=== PATIENT | male | born 1995 | race Caucasian/White ===

== ENCOUNTER 2018-10-29 21:23 | Emergency (ER) | payer MEDICAID, OTHER ==
[~2018-10-29] VITALS: Ht 180.3 cm; Wt 112.8 kg
--- NOTE | 2018-10-29 22:04 | NUR ---
PATIENT C/O "PELVIC PAIN" THAT HE DESCRIBES SUPRAPUBIC BURNING FOR 3 OR 4 MONTHS, FINALLY CAME TO ER, "GOT THE COURAGE UP" DESCRIBES INTERMITTENT PAIN WITH URINATION, NO INCREASE IN PAIN WITH PALPATION OF ABDOMEN LAST INTERCOURSE WAS 5 MONTHS AGO, NO CONDOM USED
[2018-10-29 22:05] LABS: CLARITY,URINE CLEAR (Clear); COLOR,URINE YELLOW (Yellow); GLUCOSE, URINE NEGATIVE (Neg); KETONES,URINE NEGATIVE (Neg); LEUKOCYTE ESTERASE ,URINE NEGATIVE (Neg); NITRITES, URINE NEGATIVE (Neg); OCCULT BLOOD,URINE TRACE-LYSED (Neg); PROTEIN,URINE NEGATIVE (Neg)
[2018-10-29 22:12] LABS: BACTERIA,URINE NONE SEEN /HPF (Neg); RBC,URINE NONE SEEN /HPF (0-2); UA COLLECTION TYPE VOIDED; WBC,URINE NONE SEEN /HPF (0-4)
[2018-10-29 22:13] LABS: SQUAMOUS EPITHELIAL CELL,UR NONE SEEN /LPF (FEW)
--- NOTE | 2018-10-29 23:04 | NUR ---
PATIENT CHANGED INTO GOWN
[2018-10-29 23:08] VITALS: BP 150/84
[2018-10-29] MEDS ORDERED: azithromycin 250mg tablet PO ONE (23:30)
[2018-10-30 00:01] LABS: CLARITY,URINE CLEAR (Clear); COLOR,URINE YELLOW (Yellow); GLUCOSE, URINE NEGATIVE (Neg); KETONES,URINE NEGATIVE (Neg); LEUKOCYTE ESTERASE ,URINE NEGATIVE (Neg); NITRITES, URINE NEGATIVE (Neg); OCCULT BLOOD,URINE SMALL (Neg); PROTEIN,URINE NEGATIVE (Neg); UROBILINOGEN,URINE 0.2 E.U/dL (0.2-1.0)
[2018-10-30 00:09] LABS: UA COLLECTION TYPE VOIDED
[2018-10-30 00:10] LABS: BACTERIA,URINE FEW /HPF (Neg); MUCUS STRANDS MANY /LPF (Neg); SQUAMOUS EPITHELIAL CELL,UR FEW /LPF (FEW); WBC,URINE NONE SEEN /HPF (0-4)
== END 2018-10-29 23:45 | disposition home or self-care (01) ==
LOC: ER 21:24
DX: N34.2 Other urethritis (principal); F12.90 Cannabis use, unspecified, uncomplicated
CPT/HCPCS: 36415; 81001; 81003; 87491; 99283

== ENCOUNTER 2019-11-16 14:48 | Emergency (ER) | payer MEDICAID, OTHER ==
[~2019-11-16] VITALS: Ht 182.9 cm; Wt 129.0 kg
[2019-11-16] MEDS ORDERED: cephalexin 250mg capsule PO ONE (15:50)
[2019-11-16] MEDS ORDERED: bacitracin 15gm ointment TP ONE ×2 (15:50→17:35)
--- NOTE | 2019-11-16 16:06 | NUR ---
Pt arrived from ER triage. Left finger redness and swelling noted, possible from hang nail, per pt. Multiple self inflicted cuts on pts left anterior thigh and right lateral upper arm, healing in various stages. MD has seen pt and cuts noted. UA and labs pending. Pt changed into green scrubs, belongings recorded and placed in locker. Pt calm, cooperative, and polite. Pt oriented to unit.
[2019-11-16 16:47] LABS: BASOPHILS # (AUTO) 0.1 X10'3 (0-0.2); BASOPHILS % (AUTO) 0.9 % (0-1); EOSINOPHILS # (AUTO) 0.3 X10'3 (0-0.9); EOSINOPHILS % (AUTO) 2.3 % (0-6); HEMATOCRIT 41.5 % (42.0-52.0); HEMOGLOBIN 14.1 g/dl (14.0-17.9); LYMPHOCYTES # (AUTO) 2.4 X10'3 (1.1-4.8); LYMPHOCYTES % (AUTO) 21.1 % (21-51); MEAN CORPUSCULAR HEMOGLOBIN 30.2 PG (27.0-31.0); MEAN CORPUSCULAR VOLUME 88.7 FL (78-98); MEAN PLATELET VOLUME 6.5 FL (7.4-10.4); MONOCYTES # (AUTO) 1.2 X10'3 (0-0.9); MONOCYTES % (AUTO) 10.1 % (2-12); NEUTROPHILS # (AUTO) 7.5 X10'3 (1.8-7.7); NEUTROPHILS % (AUTO) 65.6 % (42-75); PLATELET COUNT 444 X10'3 (140-440); RED BLOOD COUNT 4.68 X10'6 (4.70-6.10); RED CELL DISTRIBUTION WIDTH 13.3 % (11.5-14.5); WHITE BLOOD COUNT 11.4 X10'3 (4.5-11.0)
--- NOTE | 2019-11-16 16:52 | NUR ---
Pt reports he does not currently take any prescription drugs. He occationally takes OTC Ibupriofen PRN for occational aches and pains.
[2019-11-16 17:05] LABS: URINE AMPHETAMINE SCREEN NEGATIVE (Neg); URINE BARBITUATE SCREEN NEGATIVE (Neg); URINE BENZODIAZEPINES SCREEN NEGATIVE (Neg); URINE CANNABINOID SCREEN NEGATIVE (Neg); URINE COCAINE SCREEN NEGATIVE (Neg); URINE METHADONE SCREEN NEGATIVE (Neg); URINE OPIATE SCREEN NEGATIVE (Neg); URINE PHENCYCLIDINE SCREEN NEGATIVE (Neg)
[2019-11-16 17:08] LABS: ALANINE AMINOTRANSFERASE 152 U/L (12-78); ALBUMIN 3.8 G/DL (3.4-5.0); ALKALINE PHOSPHATASE 126 IU/L (46-116); ANION GAP 6 (8-16); ASPARTATE AMINO TRANSFERASE 43 U/L (10-37); BILIRUBIN,TOTAL 0.4 MG/DL (0.1-1.0); BLOOD UREA NITROGEN 9 MG/DL (7-18); BUN/CREATININE RATIO 10.6 (5.4-32.0); CALCIUM 9.1 MG/DL (8.5-10.1); CHLORIDE 106 MMOL/L (99-107); CREATININE 0.85 MG/DL (0.60-1.10); ETHANOL < 0.010 GM/DL (0.0-0.010); GLUCOSE 92 MG/DL (70-104); POTASSIUM 3.9 MMOL/L (3.5-5.1); SODIUM 140 MMOL/L (135-145); TOTAL CARBON DIOXIDE 28.1 MMOL/L (24-32); TOTAL PROTEIN 7.7 G/DL (6.4-8.2); eGFR > 90 ML/MIN
--- NOTE | 2019-11-16 18:08 | NUR ---
right arm and leg lacerations cleansed with NS, bacitracin applied, and 4x4 with tape applied to protect site.
--- NOTE | 2019-11-16 18:52 | NUR ---
Pt ate all of tray accept dessert. PT has a flat affect, makes fair eye contact, and is cooperative with 1:1 assessment. He states he was feeling suicidal earlier today. Pt reports he has had multiple suicide attepmts the last one being when he was 16. Costume Designer asks if it is feeling depressed and he responds, "I am always depressed, it's just how I am." PT reports that he cuts because it is a stress reliever for him and it makes him feel better in the moment.
[2019-11-16 19:18] LABS: CLARITY,URINE CLEAR (Clear); COLOR,URINE YELLOW (Yellow); GLUCOSE, URINE NEGATIVE (Neg); KETONES,URINE NEGATIVE (Neg); LEUKOCYTE ESTERASE ,URINE NEGATIVE (Neg); NITRITES, URINE NEGATIVE (Neg); OCCULT BLOOD,URINE TRACE-INTACT (Neg); PROTEIN,URINE NEGATIVE (Neg); UROBILINOGEN,URINE 0.2 E.U/dL (0.2-1.0)
[2019-11-16 19:23] LABS: UA COLLECTION TYPE VOIDED
[2019-11-16 19:24] LABS: BACTERIA,URINE NONE SEEN /HPF (Neg); RBC,URINE 0-2 /HPF (0-2); SQUAMOUS EPITHELIAL CELL,UR FEW /LPF (FEW); WBC,URINE NONE SEEN /HPF (0-4)
--- NOTE | 2019-11-16 20:00 | NUR ---
PT IS BEING SEEN BY [facility].
--- NOTE | 2019-11-16 22:00 | NUR ---
PT ASSESSED BY [facility], PT IS BEING DISCHARGED TO HOME. [facility] STATES THEY WILL CALL PATIENT ON MONDAY TO SET UP CARE. PT VERBALIZED UNDERSTANDING AND AGREED. PT GIVEN PAPERWORK FROM [facility] REGARDING FOLLOW UP.
--- NOTE | 2019-11-16 22:30 | NUR ---
PT DISCHARGED TO HOME WITH ALL BELONGINGS. PT'S FAMILY CAME TO PICK HIM UP.
[2019-11-17 00:09] VITALS: BP 154/95
== END 2019-11-16 22:30 | disposition home or self-care (01) ==
LOC: ER 14:49
DX: F32.9 Major depressive disorder, single episode, unspecified (principal); R45.851 Suicidal ideations; F12.90 Cannabis use, unspecified, uncomplicated; Z56.0 Unemployment, unspecified
CPT/HCPCS: 36415; 80053; 80305; 80320; 81001; 84443; 85025; 99284

== ENCOUNTER 2019-12-07 14:06 | Emergency (ER) | payer MEDICAID, OTHER ==
[~2019-12-07] VITALS: Ht 180.3 cm; Wt 128.5 kg
[2019-12-07 15:18] LABS: BASOPHILS # (AUTO) 0.1 X10'3 (0-0.2); BASOPHILS % (AUTO) 0.9 % (0-1); EOSINOPHILS # (AUTO) 0.2 X10'3 (0-0.9); EOSINOPHILS % (AUTO) 1.6 % (0-6); HEMATOCRIT 42.9 % (42.0-52.0); HEMOGLOBIN 14.9 g/dl (14.0-17.9); LYMPHOCYTES # (AUTO) 2.7 X10'3 (1.1-4.8); LYMPHOCYTES % (AUTO) 19.6 % (21-51); MEAN CORPUSCULAR HEMOGLOBIN 30.9 PG (27.0-31.0); MEAN CORPUSCULAR HGB CONC 34.8 g/dL (33.0-36.5); MEAN CORPUSCULAR VOLUME 88.9 FL (78-98); MEAN PLATELET VOLUME 6.6 FL (7.4-10.4); MONOCYTES # (AUTO) 1.2 X10'3 (0-0.9); MONOCYTES % (AUTO) 8.8 % (2-12); NEUTROPHILS # (AUTO) 9.5 X10'3 (1.8-7.7); NEUTROPHILS % (AUTO) 69.1 % (42-75); PLATELET COUNT 504 X10'3 (140-440); RED BLOOD COUNT 4.83 X10'6 (4.70-6.10); RED CELL DISTRIBUTION WIDTH 13.1 % (11.5-14.5); WHITE BLOOD COUNT 13.7 X10'3 (4.5-11.0)
[2019-12-07 15:28] LABS: ALANINE AMINOTRANSFERASE 63 U/L (12-78); ALBUMIN 3.9 G/DL (3.4-5.0); ALBUMIN/GLOBULIN RATIO 0.8 (1.1-1.5); ALKALINE PHOSPHATASE 144 IU/L (46-116); ANION GAP 8 (8-16); ASPARTATE AMINO TRANSFERASE 41 U/L (10-37); BILIRUBIN,TOTAL 0.4 MG/DL (0.1-1.0); BLOOD UREA NITROGEN 10 MG/DL (7-18); BUN/CREATININE RATIO 11.8 (5.4-32.0); CALCIUM 9.2 MG/DL (8.5-10.1); CHLORIDE 104 MMOL/L (99-107); CREATININE 0.85 MG/DL (0.60-1.10); ETHANOL < 0.010 GM/DL (0.0-0.010); GLUCOSE 96 MG/DL (70-104); POTASSIUM 4.1 MMOL/L (3.5-5.1); SODIUM 139 MMOL/L (135-145); TOTAL CARBON DIOXIDE 26.8 MMOL/L (24-32); TOTAL PROTEIN 8.9 G/DL (6.4-8.2); eGFR > 90 ML/MIN
[2019-12-07] MEDS ORDERED: TETanus/Pertussis (Acell)/Diphther VAC/PF (Tdap-Adult) 0.5ml syringe IMVAC ONE (15:45)
[2019-12-07 16:31] LABS: URINE AMPHETAMINE SCREEN NEGATIVE (Neg); URINE BARBITUATE SCREEN NEGATIVE (Neg); URINE BENZODIAZEPINES SCREEN NEGATIVE (Neg); URINE CANNABINOID SCREEN NEGATIVE (Neg); URINE COCAINE SCREEN NEGATIVE (Neg); URINE METHADONE SCREEN NEGATIVE (Neg); URINE OPIATE SCREEN NEGATIVE (Neg); URINE PHENCYCLIDINE SCREEN NEGATIVE (Neg)
[2019-12-07] MEDS: gentamicin 0.1% topical ointment 15gm TP SCH ×2 (16:31→20:00)
--- NOTE | 2019-12-07 18:42 | NUR ---
Pt is sitting up in bed eating his dinner. Pt remains pleasant and cooperative throughout conversation. Pt admits that he is feeling suicidal and wants to continue cutting himself. PT has multiple self inflicted lacerations to his right upper arm. Pictures in chart.
[2019-12-07] MEDS: acetaminophen 325mg tablet PO PRN (21:03)
--- NOTE | 2019-12-07 21:29 | NUR ---
Pt reports having a headache, 650 mg tylenol PO ordered and given.
--- NOTE | 2019-12-07 21:36 | NUR ---
PACKET FAXED TO [facility]
--- NOTE | 2019-12-08 | NUR ---
Pt is sleepig on R side, no signs or symptoms of distress at this time.
--- NOTE | 2019-12-08 03:28 | NUR ---
PT sleeping on back, RR 16, even and unlabored.
--- NOTE | 2019-12-08 04:59 | NUR ---
PT wakes up and uses the restroom. He appears to be in pain, but refuses tylenol. Pt states he slept well and is glad he got that much sleep.
--- NOTE | 2019-12-08 06:30 | NUR ---
pt is currently sleeping.
--- NOTE | 2019-12-08 07:30 | NUR ---
pt is resting in his bed
[2019-12-08] MEDS: gentamicin 0.1% topical ointment 15gm TP SCH ×2 (08:00→20:00)
--- NOTE | 2019-12-08 08:30 | NUR ---
pt is awake and eating breakfast
--- NOTE | 2019-12-08 09:30 | NUR ---
dressing placed on wounds. pt changed into clean green scrubs
--- NOTE | 2019-12-08 09:40 | NUR ---
PT STATES HE "WASN'T HUNGRY" AND DID NOT EAT HIS BREAKFAST.
--- NOTE | 2019-12-08 10:36 | NUR ---
dressing placed on wounds to left leg and right arm. xero gauze, gauge roll and coban. wound care consult placed
--- NOTE | 2019-12-08 11:47 | NUR ---
Assumed care of pt while primary nurse on break. Pt resting in bed. Sitter nearby. Will continue to monitor.
--- NOTE | 2019-12-08 12:20 | NUR ---
pt is sleeping
--- NOTE | 2019-12-08 13:30 | NUR ---
pt is awake. sitting on his bed and eating lunch
--- NOTE | 2019-12-08 14:30 | NUR ---
pt is resting in his bed. no issues at this time
--- NOTE | 2019-12-08 15:30 | NUR ---
pt is sleeping no issues at this time
[2019-12-08] MEDS: acetaminophen 325mg tablet PO PRN ×2 (17:52→23:54)
--- NOTE | 2019-12-08 19:39 | NUR ---
Pt. sleeping, easily arousable. Gen assessment done at this time. Pt. denies S/I at the moment.
--- NOTE | 2019-12-08 20:30 | NUR ---
dressings to wounds to rt shoulder and left thigh removed, cleaned wounds with NS, redressed with xeroform and guaze wrap, pt has order for wound care tomorrow, pt vicenta well
--- NOTE | 2019-12-08 22:22 | NUR ---
pt is sleeping, resp even and unlabored
--- NOTE | 2019-12-08 23:44 | NUR ---
pt is asking for medication to help him sleep, Dr Agrawal gave verbal order for ativan 1mg PO x1 now
[2019-12-08] MEDS ORDERED: LORazepam 1 MG tablet PO ONE (23:45)
--- NOTE | 2019-12-09 00:30 | NUR ---
Assumed care from KRISTIAN Huerta. Pt. currently in bed, sleeping on sup position.
--- NOTE | 2019-12-09 01:26 | NUR ---
Pt continues to sleep on supine position.
--- NOTE | 2019-12-09 02:33 | NUR ---
Pt. continues to sleep. He repos self.
--- NOTE | 2019-12-09 03:33 | NUR ---
Pt. continues to sleep on L side at this time.
--- NOTE | 2019-12-09 04:25 | NUR ---
Pt. continues to sleep at this time.
[2019-12-09 05:06] VITALS: BP 124/71
--- NOTE | 2019-12-09 05:27 | NUR ---
Pt. sleeping on R side.
--- NOTE | 2019-12-09 07:00 | NUR ---
Pt received alseep in bed without complaints or distress.
[2019-12-09] MEDS: gentamicin 0.1% topical ointment 15gm TP SCH (08:00)
--- NOTE | 2019-12-09 09:00 | NUR ---
Pt awoke for breakfast and then wound care nurse was here and performed drsg change which was tolerated well.
--- NOTE | 2019-12-09 09:41 | NUR ---
Wound care POC. Arrived at bedside for assessment of wounds to right upper arm and left thigh. Explained procedure to pt and pt gave informed verbal consent. Pt is a 24 year old male. He presented to the ED for evaluation of suicidal ideation. He has a hx of depression that is currently untreated. He states no other health history. He states he has used cocaine in the past but denies any current drug or tobacco use. His WBC is 13.7 thousand. All other labs are unremarkable. Pt states that he cut himself with a razor about a month ago. He states that as they would scab they would get caught on his clothing and rip the scabs off. The wounds to the right upper arm present with no signs of infection noted. All the wounds appear to be within the same phase of healing. There are multiple lacerations noted, some in the shape of an X and some diagonal lines. Several of them appear to be hypergranulating which would indicate that the pt has been removing scabs/eschar as it forms as they should not still be full thickness wounds. Wound beds with beefy red granulation tissue, minimal amount of serosanguineous drainage noted, no odor, erythema or induration. Cleansed with wound cleanser, rinsed with saline, applied xeroform to open areas, covered with dry gauze and secured with gauze roll. Multiple wounds to the left anterior thigh also in the shape of an X as well as diagonal lines. Wound beds are beefy red, also nearing hypergranulation as described above. The wounds to the more medial aspect present with more tenderness per the pt, grimacing noted when cleaning the wounds. Erythema and purulent drainage noted to several of the wounds on the thigh. There are also scars from previous cuts on the thigh which the pt states were not obtained at the same time as the open wounds. All wounds are full thickness. Cleansed with wound cleanser, rinsed with saline, applied therahoney to wound beds, covered with silver alginate and ABDs, secured with gauze roll. Recommend obtaining a culture of the wounds to the thigh if pt is admitted and a course of abx is likely needed. Pt is likely being admitted to the [facility] unit today and will be reevaluated tomorrow as an inpatient for further dressing orders and culture if indicated. Pt tolerated procedure well. Bed left in lowest position, call light and personal items within reach.
[2019-12-09] MEDS: acetaminophen 325mg tablet PO PRN (10:09)
--- NOTE | 2019-12-09 11:05 | NUR ---
Patient resting comfortably, no requests at this time.
--- NOTE | 2019-12-09 13:00 | NUR ---
Pt lying in bed without complaints.
[2019-12-09] MEDS ORDERED: NO HOME MEDS (15:33)
[2019-12-12] MEDS ORDERED: TRAZ-251 PO (16:01)
[2019-12-12] MEDS ORDERED: FLUO-167 PO (16:01)
[2019-12-12] MEDS ORDERED: BACDS PO (16:01)
== END 2019-12-09 14:30 ==
LOC: ER 14:07
DX: F32.9 Major depressive disorder, single episode, unspecified (principal); L08.89 Other specified local infections of the skin and subcutaneous tissue; R45.851 Suicidal ideations; Z56.0 Unemployment, unspecified
CPT/HCPCS: 36415; 80053; 80305; 80320; 84443; 85025; 90471; 90715; 99285

== ENCOUNTER 2020-02-03 10:21 | Emergency (ER) | payer MEDICAID ==
[~2020-02-03] VITALS: Ht 185.4 cm; Wt 110.0 kg
[~2020-02-03 10:21] MED LIST: FLUO-167 PO; NO HOME MEDS; PRAZ1CAP5 PO; TRAZ-251 PO
[2020-02-03 10:44] LABS: BASOPHILS % (AUTO) 0.6 % (0-1); EOSINOPHILS # (AUTO) 0.4 X10'3 (0-0.9); EOSINOPHILS % (AUTO) 4.5 % (0-6); HEMATOCRIT 45.7 % (42.0-52.0); HEMOGLOBIN 15.1 g/dl (14.0-17.9); LYMPHOCYTES # (AUTO) 2.6 X10'3 (1.1-4.8); LYMPHOCYTES % (AUTO) 33.2 % (21-51); MEAN CORPUSCULAR HEMOGLOBIN 29.9 PG (27.0-31.0); MEAN CORPUSCULAR HGB CONC 33.1 g/dL (33.0-36.5); MEAN CORPUSCULAR VOLUME 90.6 FL (78-98); MEAN PLATELET VOLUME 6.8 FL (7.4-10.4); MONOCYTES # (AUTO) 0.9 X10'3 (0-0.9); MONOCYTES % (AUTO) 10.9 % (2-12); NEUTROPHILS % (AUTO) 50.8 % (42-75); PLATELET COUNT 382 X10'3 (140-440); RED BLOOD COUNT 5.05 X10'6 (4.70-6.10); RED CELL DISTRIBUTION WIDTH 13.9 % (11.5-14.5); WHITE BLOOD COUNT 7.9 X10'3 (4.5-11.0)
[2020-02-03 10:46] LABS: CLARITY,URINE CLEAR (Clear); COLOR,URINE YELLOW (Yellow); GLUCOSE, URINE NEGATIVE (Neg); KETONES,URINE NEGATIVE (Neg); LEUKOCYTE ESTERASE ,URINE NEGATIVE (Neg); NITRITES, URINE NEGATIVE (Neg); OCCULT BLOOD,URINE SMALL (Neg); PH,URINE 5.5 (4.8-8.0); PROTEIN,URINE NEGATIVE (Neg); UA COLLECTION TYPE URINAL; UROBILINOGEN,URINE 0.2 E.U/dL (0.2-1.0)
[2020-02-03] MEDS ORDERED: TRAZ-251 PO (10:48)
[2020-02-03] MEDS ORDERED: FLUO20CA39 PO (10:48)
[2020-02-03] MEDS ORDERED: PRAZ1CAP5 PO (10:48)
[2020-02-03 10:52] LABS: MUCUS STRANDS MANY /LPF (Neg); SQUAMOUS EPITHELIAL CELL,UR FEW /LPF (FEW); URINE AMPHETAMINE SCREEN NEGATIVE (Neg); URINE BARBITUATE SCREEN NEGATIVE (Neg); URINE BENZODIAZEPINES SCREEN NEGATIVE (Neg); URINE CANNABINOID SCREEN NEGATIVE (Neg); URINE COCAINE SCREEN NEGATIVE (Neg); URINE METHADONE SCREEN NEGATIVE (Neg); URINE OPIATE SCREEN NEGATIVE (Neg); URINE PHENCYCLIDINE SCREEN NEGATIVE (Neg)
[2020-02-03 10:53] LABS: BACTERIA,URINE NONE SEEN /HPF (Neg); RBC,URINE 0-2 /HPF (0-2); WBC,URINE NONE SEEN /HPF (0-4)
[2020-02-03 10:58] LABS: ALANINE AMINOTRANSFERASE 65 U/L (12-78); ALBUMIN 3.9 G/DL (3.4-5.0); ALKALINE PHOSPHATASE 122 IU/L (46-116); ANION GAP 8 (8-16); ASPARTATE AMINO TRANSFERASE 33 U/L (10-37); BILIRUBIN,TOTAL 0.4 MG/DL (0.1-1.0); BLOOD UREA NITROGEN 12 MG/DL (7-18); BUN/CREATININE RATIO 13.2 (5.4-32.0); CALCIUM 8.9 MG/DL (8.5-10.1); CHLORIDE 105 MMOL/L (99-107); CREATININE 0.91 MG/DL (0.60-1.10); GLUCOSE 102 MG/DL (70-104); POTASSIUM 3.7 MMOL/L (3.5-5.1); SODIUM 141 MMOL/L (135-145); TOTAL CARBON DIOXIDE 27.6 MMOL/L (24-32); TOTAL PROTEIN 7.9 G/DL (6.4-8.2); eGFR > 90 ML/MIN
[2020-02-03 11:07] LABS: ETHANOL < 0.010 GM/DL (0.0-0.010)
--- NOTE | 2020-02-03 11:34 | NUR ---
PATIENT AMBULATORY TO ER #[id number]. PATIENT COOPERATIVE AND DENIES NEEDS AT THIS TIME.
--- NOTE | 2020-02-03 14:22 | NUR ---
Pt. resting quietly in bed, no signs of distress, respiration WNL. Talked to pt. while taking vital signs, pt. is calm and understands timeline for [facility] to evaluate him. Pt. states "I've been feeling really down and depressed, I want to be here incase I start feeling like I am going to harm myself". Pt. has wounds on upper right arm that he reports are from previous self harm.
--- NOTE | 2020-02-03 18:51 | NUR ---
pt is lying in bed staring at ceiling. pt appears depressed with flat affect. pt stated that wants to speak [facility].
--- NOTE | 2020-02-03 19:17 | NUR ---
pt is meeting with clinician from [facility] now.
--- NOTE | 2020-02-03 20:25 | NUR ---
pt has been released from 5150, is awaiting referral to [facility]. pt was given his belongings.
[2020-02-03] MEDS ORDERED: traZODone 50mg tablet PO SCH (21:00)
[2020-02-03] MEDS ORDERED: prazosin 1mg capsule PO SCH (21:00)
[2020-02-03 21:16] VITALS: BP 145/73
[2020-02-04] MEDS ORDERED: FLUoxetine 20mg capsule PO SCH (08:00)
== END 2020-02-03 21:19 | disposition home or self-care (01) ==
LOC: ER 10:21
DX: R45.851 Suicidal ideations (principal); F32.9 Major depressive disorder, single episode, unspecified; Z72.89 Other problems related to lifestyle; Z56.0 Unemployment, unspecified; Z79.899 Other long term (current) drug therapy
CPT/HCPCS: 36415; 80053; 80305; 80320; 81001; 84443; 85025; 99285

== ENCOUNTER 2020-03-10 21:33 | Emergency (ER) | payer MEDICAID ==
[~2020-03-10] VITALS: Ht 182.9 cm; Wt 120.5 kg
[~2020-03-10 21:33] MED LIST changes: -FLUO-167 PO; +FLUO20CA39 PO; -NO HOME MEDS
--- NOTE | 2020-03-10 22:05 | NUR ---
PT TAKEN TO ROOM 17 TO BE CHANGED INTO [facility] HAVE LABS DRAWN AND A BELONGING INVENTORY LIST TO BE COMPLETD BY CELL[employer] PLASTICS CUTTER
[2020-03-10 22:25] LABS: BASOPHILS # (AUTO) 0.1 X10'3 (0-0.2); BASOPHILS % (AUTO) 0.8 % (0-1); EOSINOPHILS % (AUTO) 0.3 % (0-6); HEMOGLOBIN 14.6 g/dl (14.0-17.9); LYMPHOCYTES % (AUTO) 20.5 % (21-51); MEAN CORPUSCULAR HEMOGLOBIN 30.4 PG (27.0-31.0); MEAN CORPUSCULAR HGB CONC 33.9 g/dL (33.0-36.5); MEAN CORPUSCULAR VOLUME 89.6 FL (78-98); MEAN PLATELET VOLUME 6.8 FL (7.4-10.4); MONOCYTES # (AUTO) 1.8 X10'3 (0-0.9); MONOCYTES % (AUTO) 12.2 % (2-12); NEUTROPHILS # (AUTO) 9.7 X10'3 (1.8-7.7); NEUTROPHILS % (AUTO) 66.2 % (42-75); PLATELET COUNT 351 X10'3 (140-440); RED CELL DISTRIBUTION WIDTH 13.9 % (11.5-14.5); WHITE BLOOD COUNT 14.6 X10'3 (4.5-11.0)
[2020-03-10 22:37] LABS: ALANINE AMINOTRANSFERASE 67 U/L (12-78); ALBUMIN 4.1 G/DL (3.4-5.0); ALBUMIN/GLOBULIN RATIO 1.1 (1.1-1.5); ALKALINE PHOSPHATASE 100 IU/L (46-116); ANION GAP 11 (8-16); ASPARTATE AMINO TRANSFERASE 30 U/L (10-37); BILIRUBIN,TOTAL 0.5 MG/DL (0.1-1.0); BLOOD UREA NITROGEN 17 MG/DL (7-18); BUN/CREATININE RATIO 15.5 (5.4-32.0); CALCIUM 8.7 MG/DL (8.5-10.1); CHLORIDE 102 MMOL/L (99-107); ETHANOL < 0.010 GM/DL (0.0-0.010); GLUCOSE 106 MG/DL (70-104); POTASSIUM 3.4 MMOL/L (3.5-5.1); SODIUM 139 MMOL/L (135-145); TOTAL CARBON DIOXIDE 25.9 MMOL/L (24-32); TOTAL PROTEIN 7.9 G/DL (6.4-8.2); eGFR 82 ML/MIN
--- NOTE | 2020-03-10 22:37 | NUR ---
The patient is a 24 year old male who self presented to [facility] ER with complaints of self inflicted cuts to various places on his body. He stated that he is not suicidal but uses the cutting behaviors as a coping skill to decrease his anxiety. He stated he was released from the [facility] prison around 3pm today after being arrested for being drunk in public. He is homeless and unemployed. He has recently been staying with his brother but was kicked out because he had a fight with him. He recently was discharged from the [facility] where he was there for the past 30 days. He denies psychotic symptoms and none were evident during the assessment. He is currently being treated in the community for psych and is on prozac and trazodone. He was cooperative with the unit routine.
[2020-03-10 22:44] LABS: CLARITY,URINE SLIGHTLY CLOUDY (Clear); COLOR,URINE YELLOW (Yellow); GLUCOSE, URINE NEGATIVE (Neg); KETONES,URINE NEGATIVE (Neg); LEUKOCYTE ESTERASE ,URINE NEGATIVE (Neg); NITRITES, URINE NEGATIVE (Neg); OCCULT BLOOD,URINE SMALL (Neg); PROTEIN,URINE TRACE mg/dl (Neg); UROBILINOGEN,URINE 0.2 E.U/dL (0.2-1.0)
[2020-03-10 22:50] LABS: UA COLLECTION TYPE CLN CATCH MIDSTREAM
[2020-03-10 22:51] LABS: BACTERIA,URINE NONE SEEN /HPF (Neg); RBC,URINE 0-2 /HPF (0-2); SQUAMOUS EPITHELIAL CELL,UR FEW /LPF (FEW); WBC,URINE NONE SEEN /HPF (0-4)
[2020-03-10 22:56] LABS: URINE AMPHETAMINE SCREEN NEGATIVE (Neg); URINE BARBITUATE SCREEN NEGATIVE (Neg); URINE BENZODIAZEPINES SCREEN NEGATIVE (Neg); URINE CANNABINOID SCREEN NEGATIVE (Neg); URINE COCAINE SCREEN NEGATIVE (Neg); URINE METHADONE SCREEN NEGATIVE (Neg); URINE OPIATE SCREEN NEGATIVE (Neg); URINE PHENCYCLIDINE SCREEN NEGATIVE (Neg)
--- NOTE | 2020-03-10 23:23 | NUR ---
The patient is resting on his bed. PO fluids encouraged.
--- NOTE | 2020-03-11 02:22 | NUR ---
PT REMAINS ASLEEP. CURRENTLY LYING ON HIS BACK WITH BLANKETS COVERING TO HIS CHEST. RR 14 AND UNLABORED. SITTER AND RN WITHIN VIEW OF PT AAT.
--- NOTE | 2020-03-11 02:34 | NUR ---
PT NOTED TO HAVE HR OF 128 IN TRIAGE. VS RECHECKED AND HR 94, ALL OTHER VSS. PT DENEIS ANY PAIN. PT WAS AWAKENED TO TAKE VS AND WAS POLITE AND APPROPRIATE WITH ME. DENIES NEED FOR ANYTHING AT THIS TIME.
--- NOTE | 2020-03-11 03:35 | NUR ---
PT SLEEPING. LYING ON HIS BACK WITH BLANKETS COVERING TO HIS CHEST. RR 14 AND UNLABORED. SITTER AND RN WITHIN VIEW OF PT AAT.
--- NOTE | 2020-03-11 04:30 | NUR ---
PT SLEEPING PEACFULLY SUPINE RESP UNLABORED EVEN . WILL CONTINUE TO MONITOR AND REASSESS.
--- NOTE | 2020-03-11 05:28 | NUR ---
PT SLEEPING PEACFULLY ON HIS RIGHT SIDE RESP UNLABORED . IN THE DIRECT MARYANN EOF SIGHT OF STAFF . WILL CONTINUE TO MONITOR AND REASSESS
--- NOTE | 2020-03-11 05:35 | NUR ---
packet faxed to [facility]
--- NOTE | 2020-03-11 05:36 | NUR ---
PT DIET ORDER FAXED TO [facility]
[2020-03-11 05:47] VITALS: BP 109/67
--- NOTE | 2020-03-11 06:30 | NUR ---
PT IS RESTING IN BED. REPORT RECEIVED
--- NOTE | 2020-03-11 07:30 | NUR ---
PT IS RESTING IN HIS ROOM. NO ISSUES AT THIS TIME
[2020-03-11] MEDS ORDERED: FLUoxetine 20mg capsule PO SCH (08:00)
--- NOTE | 2020-03-11 08:30 | NUR ---
PT IS SLEEPING
--- NOTE | 2020-03-11 09:30 | NUR ---
PT IS AWAKE AND TALKING WITH [facility]
--- NOTE | 2020-03-11 10:15 | NUR ---
PT IS GOING TO GO HOME TODAY AT 1400
--- NOTE | 2020-03-11 11:30 | NUR ---
PT RESTING IN ROOM
[2020-03-11] MEDS ORDERED: traZODone 50mg tablet PO SCH (21:00)
== END 2020-03-11 14:28 | disposition home or self-care (01) ==
LOC: ER 21:34
DX: S41.112A Laceration without foreign body of left upper arm, initial encounter (principal); R45.851 Suicidal ideations; D72.823 Leukemoid reaction; F32.9 Major depressive disorder, single episode, unspecified; Z72.89 Other problems related to lifestyle; Z56.0 Unemployment, unspecified; Z79.899 Other long term (current) drug therapy; X78.9XXA Intentional self-harm by unspecified sharp object, initial encounter; Y93.89 Activity, other specified; Y92.89 Other specified places as the place of occurrence of the external cause; Y99.8 Other external cause status
CPT/HCPCS: 36415; 80053; 80305; 80320; 81001; 85025; 99285

== ENCOUNTER 2020-04-23 09:10 | Inpatient (IN) | payer MEDICAID ==
[~2020-04-23] VITALS: Ht 185.4 cm; Wt 125.8 kg
[~2020-04-23 09:10] MED LIST changes: -PRAZ1CAP5 PO
[2020-04-23] MEDS ORDERED: acetaminophen 325mg tablet PO PRN ×2 (10:45)
[2020-04-23] MEDS ORDERED: traZODone 50mg tablet PO PRN (10:45)
[2020-04-23] MEDS ORDERED: loperamide 2mg capsule PO PRN (10:45)
[2020-04-23] MEDS ORDERED: mag hydrox/Alum hydrox/simeth 30ml oral suspension PO PRN (10:45)
[2020-04-23] MEDS ORDERED: LORazepam 1 MG tablet PO PRN (10:45)
[2020-04-23] MEDS ORDERED: magnesium hydroxide 30ml (MOM) UD suspension PO PRN (10:45)
[2020-04-23 11:03] VITALS: BP 132/74
[2020-04-23] MEDS ORDERED: ESCI-10 PO (11:22)
--- NOTE | 2020-04-23 15:45 | NUR ---
ADMIT NOTE: Patient admitted to [facility] at 1050 from [facility] for a 5150 DTS. Patient was admitted to [facility] because he had called [facility] reporting he had lacerated himself numerous times. Patient presented with multiple lacerations x4 to right leg Patient stated he had not taken his medications for several days and admitted to being suicidal. Patient stated he suddenly became suicidal and took a razor blade and cut his arms, legs, neck face and chest. 2RN skin check completed; belongings inventoried. Advisement given to patient. Patient presented as depressed upon admission. Patient denies SI/HI/AH/VH at this time. Patient states I just got to my boiling point. Patient states he self harms, but doesnt want to . Pt. Minimizes the lethality of this last attempt. Pt. Contracts for safety while on the unit.. Patient states the reason he stopped taking his medication was because he didnt feel like it helped. Patient is homeless, is estranged from his family. He states he first started cutting at the age of 13. Patient has some significant keloid scars on right upper arm and left lower leg. Pts current lacerations are to his face, neck, chest, bilateral shoulders. There are sutures to the right medial side of calf; sutures intact, no drainage. Wounds Wounds on right legt were cleaned with normal saline. Photographs in chart. A wound consult was ordered. Pt. c/o of diarrhea the last couple of weeks. Pt. Declined lunch and states every time he eats he gets gas and diarrhea. Pt. stayed up in his chair for a short time then went to bed. No medical history noted per patient.
[2020-04-23] MEDS ORDERED: venlafaxine XR 37.5mg cap (Q24H) PO ONE (19:35)
[2020-04-23 20:01] VITALS: BP 129/69
[2020-04-23] MEDS: traZODone 50mg tablet PO SCH (20:09)
[2020-04-23] MEDS ORDERED: traZODone 50mg tablet PO SCH (21:00)
--- NOTE | 2020-04-24 02:09 | NUR ---
Nursing Progress Note: Gabriele Legal hold: 5150 Client on involuntary status for GD/DTS. Report received from SAMANTHA Suazo with use of SBAR. Why are they here: Patient was admitted to [facility] because he had called [facility] reporting he had lacerated himself numerous times. Patient presented with multiple lacerations x4 to right leg Patient stated he had not taken his medications for several days and admitted to being suicidal. Patient stated he suddenly became suicidal and took a razor blade and cut his arms, legs, neck face and chest. Assessment What has happened this shift: Pt was in rec room during shift change, then went into consultation room to talk to . When asked how he was doing he states I could always be better. He denies any S/I and when asked why he cuts himself, he states for multiple reason, one of them is to hurt myself. He states that he feels safe here. Pt states that he usually always feels depressed but denies any anxiety at the moment. He is very guarded and although very pleasant, conversations are minimal. He states that having to live with multiple medical issues its very frustrating as he doesnt really have a primary care doctor. He was cooperative during 1:1 physical assessment and took all his HS meds. He spends time in recreation room watching TV but does not socialize or interact with other patients. S/I, H/I: Denies A/VH: Denies Sleep: Currently sleeping, see sleep assessment for total hours ADL's: Independent Group attendance: None during slot shift supervisor Were meds taken: Yes Any med S/E: None noted or reported Mental Status Exam Appearance: Appropriate, wearing personal clothing Eye contact: Good, direct Behavior: Pleasant, cooperative, guarded, isolative Speech: Normal rate and rhythm Mood: Depressed Affect: Congruent with mood Thought process: Linear Thought Content: Current medical issues Cognition: Alert and oriented X4 Insight: Poor Judgment: Poor Interventions PRN's used: None Therapeutic interventions: 1:1 assessment, therapeutic conversation, active listening, maintained a safe and therapeutic environment, monitored behaviors and need for intervention, encouragement to perform personal hygiene, provided medication education, administration, and monitored for effects, Q 15 min safety checks. Restraints/seclusion/emergency medication:N/A Justification of Continued Inpatient Treatment: Pt. requires interruption of current crisis; medication adjustments and monitoring for effects; and a safe and therapeutic environment to prevent readmission. and further decompensation.
[2020-04-24 07:23] LABS: CHOL/HDL RATIO 5.2 (0.00-4.99); CHOLESTEROL 156 MG/DL (0-200); HDL CHOLESTEROL 30 MG/DL (35-60); LDL CHOLESTEROL 106 MG/DL (50-100); TRIGLYCERIDES 185 MG/DL (20-135)
[2020-04-24 07:28] LABS: HEMOGLOBIN A1C 5.6 % (4.5-6.2)
[2020-04-24] MEDS ORDERED: ESCITALOPRAM OXALATE 5 MG TABLET PO SCH ×2 (08:00)
[2020-04-24] MEDS: venlafaxine XR 75mg capsule (Q24H) PO SCH (08:12)
[2020-04-24 08:35] VITALS: BP 112/57
--- NOTE | 2020-04-24 15:06 | NUR ---
Nursing Progress Note: Legal hold: 5150 Client on involuntary status for GD/DTS. Report received from SAMANTHA Aguillon with use of SBAR. Why are they here: Patient was admitted to [facility] because he had called [facility] reporting he had lacerated himself numerous times. Patient presented with multiple lacerations x4 to right leg Patient stated he had not taken his medications for several days and admitted to being suicidal. Patient stated he suddenly became suicidal and took a razor blade and cut his arms, legs, neck face and chest. Assessment What has happened this shift: Pt was cooperative with medication this morning. He did complain of some dizziness after HS meds last night. Suggested he speak with provider about possibly decreasing his Trazodone dose. Pt did not complain of any dizziness after taking morning antidepressant medication. Pt is isolative to self and room, he did not attend group, he refused breakfast but ate lunch. Pt rated his depression at an 8/10, he denied SI or urge to self harm today. Pt denied AH/HI, he denied VH today though states he sometimes sees shadows out of the corner of his eye. Pt asked if there was anyway he could go get his clothes. Pt stated he does not have anyone to bring clothing in for him. Pt then expressed concern that his clothing is a a [employer]. Educated pt that his social science analyst here could help him with this. Notified Mariana of pt's concerns, she will call [employer]. Wound consult done today. business technology architect applied Xeroform, gauze and tape over lacerations on left arm and right lower leg. She is putting orders in for daily dressing changes. S/I, H/I: Pt denies A/VH: Pt denies Sleep: Pt slept 7 hours last night, he naps throughout the day. ADL's: Independent Group attendance: No Were meds taken: Yes Any med S/E: Pt reported feeling dizzy after HS meds. Mental Status Exam Appearance: Young man with short dark hair dressed in clean green hospital scrubs with multiple self-inflicted lacerations covering his body. Eye contact: Good Behavior: Pleasant,cooperative, guarded, isolative Speech: Clear, audible, minimal, normal rate & rhythm Mood: Depressed Affect: Blunted Thought process: Linear Thought Content: Concerned about his belongings at [facility] 6. Cognition: A/O X 4 Insight: Poor Judgment: Poor Interventions PRN's used: None Therapeutic interventions: 1:1 assessment, therapeutic conversation, active listening, maintained a safe and therapeutic environment, monitored behaviors and need for intervention, encouragement to perform personal hygiene, provided medication education, administration, and monitored for effects, ensured contract for safety, encouraged pt to get up out of bed for meals and groups, wound care, Q 15 min safety checks. Restraints/seclusion/emergency medication:N/A Justification of Continued Inpatient Treatment: Pt requires interruption of current crisis; medication adjustments and monitoring for effects; and a safe and therapeutic environment to prevent readmission and further decompensation.
--- NOTE | 2020-04-24 15:26 | NUR ---
WOUND INFECTION EDUCATION PROVIDED BY WOUND CARE 1. Patient instructed to call their primary doctor, or go the ED immediately if any of the following symptoms occur: * Increased pain in wound * Increase in drainage from the wound * Redness in the skin surrounding the wound * Warmth in the skin surrounding the wound * Bleeding from the wound * Temperature of 101 or greater 2. If any of these occur while in the hospital tell a nurse immediately. Addendum: 04/24/20 at 1526 by Jaci Delgado RN Amended: Links added.
[2020-04-24 19:47] VITALS: BP 130/75
[2020-04-24] MEDS: traZODone 50mg tablet PO SCH (22:08)
--- NOTE | 2020-04-25 00:18 | NUR ---
Nursing Progress Note: Gabriele Legal hold: 5150 Client on involuntary status for GD/DTS. Report received from SAMANTHA Suazo with use of SBAR. Why are they here: Patient was admitted to [facility] because he had called [facility] reporting he had lacerated himself numerous times. Patient presented with multiple lacerations x4 to right leg Patient stated he had not taken his medications for several days and admitted to being suicidal. Patient stated he suddenly became suicidal and took a razor blade and cut his arms, legs, neck face and chest. Assessment What has happened this shift: Pt was in rec room during shift change reading the bible during shift change. States he is doing good, as good as I can be I guess. He remains guarded and although is friendly, answers questions minimally and appears somewhat annoyed He was cooperative during 1:1 physical assessment and denies any S/I, or H/I. Pt states that he sometimes sees things. not right now, but sometimes I see figures. I dont usually hear any weird stuff though. He denies any anxiety and when asked if he had slept well, he states that it might of been a little too well. He reports feeling dizzy upon getting up this morning. Pt requested to take only 50mg of Trazodone. Pt spent some more time in rec room watching TV and remained appropriate for they rest of the evening. S/I, H/I: Denies A/VH: Endorses visual hallucinations Sleep: Currently sleeping, see sleep assessment for total hours ADL's: Independent Group attendance: None during cnc machinist 2nd shift Were meds taken: Yes Any med S/E: None noted or reported Mental Status Exam Appearance: Appropriate, wearing green unit scrubs Eye contact: Good, direct Behavior: Pleasant, cooperative, guarded, socializing minimally Speech: Normal rate and rhythm Mood: "I'm doing alright" Affect: Blunted Thought process: Linear Thought Content: Reading the bible, medication side effects Cognition: Alert and oriented X4 Insight: Poor Judgment: Poor Interventions PRN's used: None Therapeutic interventions: 1:1 assessment, therapeutic conversation, active listening, maintained a safe and therapeutic environment, monitored behaviors and need for intervention, encouragement to perform personal hygiene, provided medication education, administration, and monitored for effects, Q 15 min safety checks. Restraints/seclusion/emergency medication:N/A Justification of Continued Inpatient Treatment: Pt. requires interruption of current crisis; medication adjustments and monitoring for effects; and a safe and therapeutic environment to prevent readmission. and further decompensation.
[2020-04-25] MEDS: venlafaxine XR 75mg capsule (Q24H) PO SCH (07:58)
[2020-04-25 08:59] VITALS: BP 114/71
--- NOTE | 2020-04-25 18:00 | NUR ---
Nursing Progress Note: Legal hold: 5150 Client on involuntary status for GD/DTS. Report received from SAMANTHA Aguillon with use of SBAR. Why are they here: Patient was admitted to [facility] because he had called [facility] reporting he had lacerated himself numerous times. Patient presented with multiple lacerations x4 to right leg Patient stated he had not taken his medications for several days and admitted to being suicidal. Patient stated he suddenly became suicidal and took a razor blade and cut his arms, legs, neck face and chest. Assessment What has happened this shift: Pt remains depressed, pt denies SI/HI/AH/VH. Pt did not complain of dizziness or adverse side effects from medications this morning, pt states, "but I only took 50 mg last night." Pt's Lexapro was D/c'd. Pt was out of his room more today than yesterday, watches TV in the community room, mostly isolative to self, pleasant and cooperative with staff, no unsafe behaviors noted. Dressings over lacerations left arm, right leg, and left chest remained dry and intact this shift. Went to change dressings earlier but patient was engaged in watching a movie. This RN will do dressing changes before leaving this shift once pt finishes dinner. S/I, H/I: Pt denies A/VH: Pt denies Sleep: Pt slept 6 hours last night, he naps throughout the day. ADL's: Independent Group attendance: No Were meds taken: Yes Any med S/E: None noted or reported. Mental Status Exam Appearance: Young man with short dark hair, glasses, and multiple tattoos dressed in clean [facility] scrubs with multiple self-inflicted lacerations covering his body. Eye contact: Good Behavior: Pleasant,cooperative, guarded, mostly isolative to self Speech: Clear, audible, minimal, normal rate & rhythm Mood: Depressed Affect: Blunted, though has a slightly sheepish/embarrassed grin during assessments Thought process: Linear Thought Content: He's as good as he gets. Cognition: A/O X 4 Insight: Fair Judgment: Fair Interventions PRN's used: None Therapeutic interventions: 1:1 assessment, therapeutic conversation, active listening, maintained a safe and therapeutic environment, monitored behaviors and need for intervention, encouragement to perform personal hygiene, provided medication education, administration, and monitored for effects, ensured contract for safety, encouraged pt to get up out of bed for meals and groups, wound care, Q 15 min safety checks. Restraints/seclusion/emergency medication:N/A Justification of Continued Inpatient Treatment: Pt requires interruption of current crisis; medication adjustments and monitoring for effects; and a safe and therapeutic environment to prevent readmission and further decompensation.
[2020-04-25 19:52] VITALS: BP 131/61
[2020-04-25] MEDS: traZODone 50mg tablet PO SCH (21:33)
--- NOTE | 2020-04-26 00:12 | NUR ---
Nursing Progress Note: Gabriele Legal hold: 5150 Client on involuntary status for GD/DTS. Report received from SAMANTHA Suazo with use of SBAR. Why are they here: Patient was admitted to [facility] because he had called [facility] reporting he had lacerated himself numerous times. Patient presented with multiple lacerations x4 to right leg Patient stated he had not taken his medications for several days and admitted to being suicidal. Patient stated he suddenly became suicidal and took a razor blade and cut his arms, legs, neck face and chest. Assessment What has happened this shift: Pt was in rec room playing a board game with peers. He socialized appropriately and maintained a calm behavior throughout the evening. He was pleasant and cooperative during 1:1 physical assessment and again only took 50mg of Trazodone even though he didnt complain of dizziness or any other side effect from it. He denies any S/I, H/I, depression or anxiety as well as any A/VH. He does continue to be guarded as conversation is very minimal. He spent some more time in rec room but retired to bed at around 2200. S/I, H/I: Denies A/VH: Denies Sleep: Currently sleeping, see sleep assessment for total hours ADL's: Independent Group attendance: None during forgeman helper Were meds taken: Yes Any med S/E: None noted or reported Mental Status Exam Appearance: Appropriate, wearing green unit scrubs Eye contact: Good, direct Behavior: Pleasant, cooperative, guarded, socializing, less isolative today Speech: Normal rate and rhythm Mood: Pt appears to be in a good mood as he laughs and interacts more with peers throughout the evening Affect: Blunted with intermittent brightening Thought process: Linear Thought Content: Discharge, medication Cognition: Alert and oriented X4 Insight: Poor Judgment: Poor Interventions PRN's used: None Therapeutic interventions: 1:1 assessment, therapeutic conversation, active listening, maintained a safe and therapeutic environment, monitored behaviors and need for intervention, encouragement to perform personal hygiene, provided medication education, administration, and monitored for effects, Q 15 min safety checks. Restraints/seclusion/emergency medication:N/A Justification of Continued Inpatient Treatment: Pt. requires interruption of current crisis; medication adjustments and monitoring for effects; and a safe and therapeutic environment to prevent readmission. and further decompensation.
[2020-04-26 08:00] VITALS: BP 128/58
[2020-04-26] MEDS ORDERED: venlafaxine XR 37.5mg cap (Q24H) PO SCH (08:00)
[2020-04-26] MEDS ORDERED: venlafaxine XR 75mg capsule (Q24H) PO SCH (08:00)
--- NOTE | 2020-04-26 15:52 | NUR ---
Nursing Progress Note: Legal hold: 5150 Client on involuntary status for GD/DTS. Report received from SAMANTHA Aguillon with use of SBAR. Why are they here: Patient was admitted to [facility] because he had called [facility] reporting he had lacerated himself numerous times. Patient presented with multiple lacerations x4 to right leg Patient stated he had not taken his medications for several days and admitted to being suicidal. Patient stated he suddenly became suicidal and took a razor blade and cut his arms, legs, neck face and chest. Assessment What has happened this shift: Patient was asleep at change of shift and awake at breakfast but did not want to eat. Patient denies suicidal ideation but states he is very depressed. Patient denies audio/visual hallucinations. Patient has several healing self inflicted wounds. No signs of infection. RN took photos of all wounds today. Patient was watching T.V. during the day but mostly kept to himself. Patient is polite and pleasant to talk to. S/I, H/I: Pt denies A/VH: Pt denies Sleep: Pt took a nap in the afternoon. ADL's: Independent Group attendance: No groups on Monday Were meds taken: Yes Any med S/E: None noted or reported. Mental Status Exam Appearance: Young man with short dark hair, glasses, and multiple tattoos dressed in clean [facility] scrubs with multiple self-inflicted lacerations covering his body. Eye contact: Good Behavior: Pleasant,cooperative, isolates Speech: Clear, audible, minimal, normal rate & rhythm Mood: Depressed Affect: Flat Thought process: Linear Thought Content: Cognition: A/O X 4 Insight: Fair Judgment: Fair Interventions PRN's used: None Therapeutic interventions: 1:1 assessment, therapeutic conversation, active listening, maintained a safe and therapeutic environment, monitored behaviors and need for intervention, encouragement to perform personal hygiene, provided medication education, administration, and monitored for effects, ensured contract for safety, encouraged pt to get up out of bed for meals and groups, wound care, Q 15 min safety checks. Restraints/seclusion/emergency medication:N/A Justification of Continued Inpatient Treatment: Pt requires interruption of current crisis; medication adjustments and monitoring for effects; and a safe and therapeutic environment to prevent readmission and further decompensation.
[2020-04-26] MEDS: lurasidone 20mg tablet PO SCH (17:58)
[2020-04-26 20:00] VITALS: BP 134/76
[2020-04-26] MEDS: traZODone 50mg tablet PO SCH (21:56)
--- NOTE | 2020-04-27 06:00 | NUR ---
Nursing Progress Note: VADIM Legal hold: VOL Client on voluntary status for DTS. Report received from SAMANTHA Suazo with use of SBAR. Why are they here: Patient was admitted to [facility] because he had called [facility] reporting he had lacerated himself numerous times. Patient presented with multiple lacerations x4 to right leg Patient stated he had not taken his medications for several days and admitted to being suicidal. Patient stated he suddenly became suicidal and took a razor blade and cut his arms, legs, neck face and chest. Assessment What has happened this shift: Pt in rec room watching TV at change of shift. Pt pleasant during 1:1, able to joke with this marketing underwriter. States his depression is 5/10 but denies all other signs and symptoms. Says this recent admit is due to stopping his medications. Pt states he stopped his medications because I had called my doctor to let them know it had been weeks, and I noted no improvements. They werent willing to change anything and since I felt it wasnt working I just stopped taking them. Pt says he is not currently working and doesnt have any interest to attend school at the moment. I am hoping to get some housing. You guys helped me last time. Pt says hes feeling a bit better overall. Pt wanting to take less Trazodone at night (no side effects reported) he only wants 50mg instead of 100mg. Will confer with MD tomorrow and report this information at shift change. S/I, H/I: Denies A/VH: Denies Sleep: Sleeps throughout the evening. See Sleep Assessment. ADL's: Independent Group attendance: N/A Were meds taken: Yes Any med S/E: None noted nor reported Mental Status Exam Appearance: Clean and appropriate, wearing unit green scrubs, nonskid socks, and personal glasses Eye contact: Good Behavior: Cooperative, Attended snack, watching TV, Occasionally talking to a peer Speech: Normal rate and rhythm Mood: Im alright Affect: Blunted with intermittent brightening Thought process: Linear Thought Content: Getting housing, getting medications that will help Cognition: A/Ox4 Insight: Poor Judgment: Poor Interventions PRN's used: None Therapeutic interventions: 1:1 assessment, therapeutic conversation, active listening, maintained a safe and therapeutic environment, monitored behaviors and need for intervention, encouragement to perform personal hygiene, provided medication education, administration, and monitored for effects, Q 15 min safety checks. Restraints/seclusion/emergency medication: N/A Justification of Continued Inpatient Treatment: Pt. requires interruption of current crisis; medication adjustments and monitoring for effects; and a safe and therapeutic environment to prevent readmission and further decompensation.
[2020-04-27 08:00] VITALS: BP 127/64
[2020-04-27] MEDS ORDERED: venlafaxine XR 75mg capsule (Q24H) PO SCH (08:00)
--- NOTE | 2020-04-27 10:00 | NUR ---
Group Therapy: Process Group This Clinicians goal for this process group were as follows: (1) Ask scaling questions about Patients current anxiety, depression, and irritability symptoms as a check-in. (2) Provide psychoeducation on differences between passive, passive-aggressive, assertive, and aggressive forms of communication. (3) Provide psychoeducation on fair fighting rules to illustrate principles of assertive communication. (4) Process Patients thoughts and reflections on this topic within the group milieu. Patient identified experiencing the following levels of anxiety, depression, and anger/irritability while present in the group milieu. Anxiety: 10/25 Depression: 02/22 Anger/irritability: 10/25 Patient presented as cooperative within the group milieu. patient was dressed in [facility] scrubs. Patient had a pink scar on his face that was observable within the milieu. Patient had tattoo sleeves on both his arms. Patient's psychomotor movement was limited and subdued, as he sat quietly at his seat with little motion during the process group. Patient presented as verbally subdued and nonobtrusive within the group milieu. Patient provided answers to his scaling questions regarding his depression, anxiety, and anger/irritability symptoms. This Clinician attempted to check in with Patient regarding what his depression felt like as a feeling(s) inside his body. Patient answered, "I don't know." Patient did not participate verbally in the conversation on adaptive principles of communication. Patient maintained solid eye contact during the process group and remained the entire session. Sherman Diehl MA, REBEKA Addendum: 04/27/20 at 1116 by Sherman Diehl SS Amended: Links added.
--- NOTE | 2020-04-27 10:09 | NUR ---
Nursing Progress Note: Legal hold: 5150 Client on involuntary status for GD/DTS. Report received from SAMANTHA Aguillon with use of SBAR. Why are they here: Patient was admitted to [facility] because he had called [facility] reporting he had lacerated himself numerous times. Patient presented with multiple lacerations x4 to right leg Patient stated he had not taken his medications for several days and admitted to being suicidal. Patient stated he suddenly became suicidal and took a razor blade and cut his arms, legs, neck face and chest. Assessment What has happened this shift: Patient was asleep at change of shift and awake at breakfast but did not want to eat. Patient denies suicidal ideation but states he is very depressed. Patient denies audio/visual hallucinations. Patient has several healing self inflicted wounds. No signs of infection. Patient isolates. Patient will watch T.V. during the day but mostly kept to himself. Patient is polite and pleasant to talk to. Tod is going to his [employer] hotel which he stayed in last week to product picker his belongings. S/I, H/I: Pt denies A/VH: Pt denies Sleep: nap in the morning. ADL's: Independent Group attendance: Yes Were meds taken: Yes Any med S/E: None noted or reported. Mental Status Exam Appearance: Young man with short dark hair, glasses, and multiple tattoos dressed in clean [facility] scrubs with multiple self-inflicted lacerations covering his body. Eye contact: Good Behavior: Pleasant,cooperative, isolates Speech: Clear, audible, minimal, normal rate & rhythm Mood: Depressed Affect: Flat Thought process: Linear Thought Content: Getting his belongings back Cognition: A/O X 4 Insight: Fair Judgment: Fair Interventions PRN's used: None Therapeutic interventions: 1:1 assessment, therapeutic conversation, active listening, maintained a safe and therapeutic environment, monitored behaviors and need for intervention, encouragement to perform personal hygiene, provided medication education, administration, and monitored for effects, ensured contract for safety, encouraged pt to get up out of bed for meals and groups, wound care, Q 15 min safety checks. Restraints/seclusion/emergency medication:N/A Justification of Continued Inpatient Treatment: Pt requires interruption of current crisis; medication adjustments and monitoring for effects; and a safe and therapeutic environment to prevent readmission and further decompensation.
[2020-04-27] MEDS ORDERED: venlafaxine XR 37.5mg cap (Q24H) PO ONE (13:05)
--- NOTE | 2020-04-27 14:44 | NUR ---
DCP Presenting Issues: Pt's homeless, has poor impulse control, and engages in maladaptive bxs to cope w/distress. Attending physician requesting SS support w/dcp activities. Interventions: SS met w/pt and engaged him in dcp activities, per discussion, pt is agreeable to go to the [facility] following meeting w/his [facility] CM. SS contacted pt's [facility] CM-Geronimo @ [phone], left vm re pt's d/c-ing tomorrow and request a rt p/c to coordinate dcp. SS also had t/c with [facility] copy cutter and coordinated pt's post-hosp appointment with Dr. Ortega on Sunday 05/06 @ 9:00 AM. SS called pt's [facility] CM and left vm to inform him of pt's post-hosp appointment. Plan: Pt to d/c tomorrow, [facility]'s mechanic driver to transport to [facility]. Mariana Chase LCSW Addendum: 04/27/20 at 1518 by Mariana ARROYO Amended: Links added.
--- NOTE | 2020-04-27 16:00 | NUR ---
Nursing Progress Note: Legal hold: 5150 Client on involuntary status for GD/DTS. Report received from SAMANTHA Aguillon with use of SBAR. Why are they here: Patient was admitted to [facility] because he had called [facility] reporting he had lacerated himself numerous times. Patient presented with multiple lacerations x4 to right leg Patient stated he had not taken his medications for several days and admitted to being suicidal. Patient stated he suddenly became suicidal and took a razor blade and cut his arms, legs, neck face and chest. Assessment What has happened this shift: RN received pt. at 1000. Pt. eats all meals in community room and takes all medications. Pt. denies SI/HI, A/V hallucinations. Pt. states, Im being discharged tomorrow. RN asked pt. how he felt about that, pt. states, It is what it is Mireille got no job, Mireille got no money, Mireille got no friends, Mireille got no family... [facility]. Im not suicidal now, but when I get there Ill probably feel more depressed. RN asked pt. how his day was, pt. states, Eh, it was alright. RN asked pt. if he was looking forward to getting out, and pt. reiterated, Mireille got no job, Mireille got no money, no friends I mean it is what it is. S/I, H/I: Pt denies A/VH: Pt denies Sleep: Pt. napped in AM. ADL's: Independent Group attendance: Yes Were meds taken: Yes Any med S/E: None noted or reported. Mental Status Exam Appearance: Wearing green scrubs, has short dark hair, glasses, and multiple tattoos, with multiple self-inflicted lacerations covering his body. Eye contact: Good Behavior: Pleasant,cooperative, withdrawn Speech: Clear, audible, minimal, normal rate & rhythm Mood: Anhedonia Affect: Flat Thought process: Linear Thought Content: Getting his belongings back Cognition: A/O X 4 Insight: Fair Judgment: Fair Interventions PRN's used: None Therapeutic interventions: 1:1 assessment, therapeutic conversation, active listening, maintained a safe and therapeutic environment, monitored behaviors and need for intervention, encouragement to perform personal hygiene, provided medication education, administration, and monitored for effects, ensured contract for safety, encouraged pt to get up out of bed for meals and groups, wound care, Q 15 min safety checks. Restraints/seclusion/emergency medication: N/A Justification of Continued Inpatient Treatment: Pt requires interruption of current crisis; medication adjustments and monitoring for effects; and a safe and therapeutic environment to prevent readmission and further decompensation.
[2020-04-27] MEDS: lurasidone 20mg tablet PO SCH (18:05)
[2020-04-27 19:58] VITALS: BP 157/70
[2020-04-27] MEDS: traZODone 50mg tablet PO SCH (20:21)
--- NOTE | 2020-04-27 22:14 | NUR ---
Nursing Progress Note: Legal hold: 5150 Client on involuntary status for GD/DTS. Report received from SAMANTHA Suazo with use of SBAR. Why are they here: Patient was admitted to [facility] because he had called [facility] reporting he had lacerated himself numerous times. Patient presented with multiple lacerations x4 to right leg Patient stated he had not taken his medications for several days and admitted to being suicidal. Patient stated he suddenly became suicidal and took a razor blade and cut his arms, legs, neck face and chest. Assessment What has happened this shift: Pt was sitting in the group room at change of shift. Pt states he still feels depressed, but denies s/i. Pt states "Nobody feels good about [facility] the [facility], but it is what it is." Pt complains of feeling constipated and requested milk of mag. Pt spent evening watching tv before going to bed. S/I, H/I: Pt denies A/VH: Pt denies Sleep: see sleep hours ADL's: Independent Group attendance: Yes Were meds taken: Yes Any med S/E: None noted or reported. Mental Status Exam Appearance: Wearing green scrubs, has short dark hair, glasses, and multiple tattoos, with multiple self-inflicted lacerations covering his body. Eye contact: Good Behavior: Pleasant,cooperative, withdrawn Speech: Clear, audible, minimal, normal rate & rhythm Mood: Anhedonia Affect: Flat Thought process: Linear Thought Content: [facility] Cognition: A/O X 4 Insight: Fair Judgment: Fair Interventions PRN's used: None Therapeutic interventions: 1:1 assessment, therapeutic conversation, active listening, maintained a safe and therapeutic environment, monitored behaviors and need for intervention, encouragement to perform personal hygiene, provided medication education, administration, and monitored for effects, ensured contract for safety, encouraged pt to get up out of bed for meals and groups, wound care, Q 15 min safety checks. Restraints/seclusion/emergency medication: N/A Justification of Continued Inpatient Treatment: Pt requires interruption of current crisis; medication adjustments and monitoring for effects; and a safe and therapeutic environment to prevent readmission and further decompensation.
[2020-04-28 08:00] VITALS: BP 123/63
[2020-04-28] MEDS ORDERED: venlafaxine XR 75mg capsule (Q24H) PO SCH (08:00)
--- NOTE | 2020-04-28 08:29 | NUR ---
Discharge Presenting Issues: Pt's scheduled to d/c today and will need transportation to the [facility]. Interventions: had t/c with [facility] office and coordinated transportation services for pt. [facility] will give us an ETA once they receive discharge packet from us. Plan: Pt to d/c to the [facility] today. Mariana Chase LCSW Addendum: 04/28/20 at 0833 by Mariana ARROYO Amended: Links added.
[2020-04-28] MEDS ORDERED: TRAZ-256 PO (12:48)
[2020-04-28] MEDS ORDERED: LURA40TA3 PO (12:48)
[2020-04-28] MEDS ORDERED: VENL150C58 PO (12:48)
[2020-04-28] MEDS ORDERED: venlafaxine XR 37.5mg cap (Q24H) PO ONE (13:05)
--- NOTE | 2020-04-28 15:20 | NUR ---
cosmetic counselor Note: RN gave patient discharge instructions. Patient verbalized understanding. Patient has all his belongings. RN took pictures of all his healing wounds and advised patient to go to the E.R. in 4 days to have his latasha removed from his right leg. Patient's wound on his left wrist looks a little red, but no drainage, pain or heat. RN gave patient instructions on signs and symptoms of infection. Patient verbalized understanding. Patient denies suicidal/homicidal ideation. Patient ambulatory, steady gait with all his belongings, with [employer] who is walking him down to the main lobby where [facility] grab driver is waiting. Patient calm and no distress.
== END 2020-04-28 15:37 | disposition home or self-care (01) | DRG 751 ==
LOC: ADULT MH 10:44
PROVIDERS: ADMIT Psychiatry & Neurology Psychiatry; ATTEND Psychiatry & Neurology Psychiatry
DX: F33.3 Major depressive disorder, recurrent, severe with psychotic symptoms (principal); F43.10 Post-traumatic stress disorder, unspecified; F10.10 Alcohol abuse, uncomplicated; S01.81XA Laceration without foreign body of other part of head, initial encounter; S41.119A Laceration without foreign body of unspecified upper arm, initial encounter; S81.819A Laceration without foreign body, unspecified lower leg, initial encounter; X58.XXXA Exposure to other specified factors, initial encounter; E66.9 Obesity, unspecified; Z59.0 Homelessness; Z68.36 Body mass index [BMI] 36.0-36.9, adult; Z79.899 Other long term (current) drug therapy; Y93.89 Activity, other specified; Y92.89 Other specified places as the place of occurrence of the external cause; Y99.8 Other external cause status; X83.8XXA Intentional self-harm by other specified means, initial encounter
CPT/HCPCS: 36415; 80061; 83036; 87081; 99285

== ENCOUNTER 2020-05-04 12:09 | Emergency (ER) | payer MEDICAID ==
[~2020-05-04] VITALS: Ht 182.9 cm; Wt 124.3 kg
[~2020-05-04 12:09] MED LIST changes: -FLUO20CA39 PO; +LURA40TA3 PO; -TRAZ-251 PO; +TRAZ-256 PO; +VENL150C58 PO
[2020-05-04 12:15] VITALS: BP 136/82
--- NOTE | 2020-05-04 13:06 | NUR ---
In room with provider for rectal exam. Negative for blood in stool. See provider rectal exam. No external hemorrhoids observed.
[2020-05-04 13:37] LABS: BASOPHILS # (AUTO) 0.1 X10'3 (0-0.2); BASOPHILS % (AUTO) 0.9 % (0-1); EOSINOPHILS # (AUTO) 0.2 X10'3 (0-0.9); EOSINOPHILS % (AUTO) 1.8 % (0-6); HEMOGLOBIN 14.4 g/dl (14.0-17.9); LYMPHOCYTES # (AUTO) 2.9 X10'3 (1.1-4.8); LYMPHOCYTES % (AUTO) 33.4 % (21-51); MEAN CORPUSCULAR HGB CONC 33.5 g/dL (33.0-36.5); MEAN CORPUSCULAR VOLUME 89.6 FL (78-98); MEAN PLATELET VOLUME 6.7 FL (7.4-10.4); MONOCYTES # (AUTO) 0.9 X10'3 (0-0.9); MONOCYTES % (AUTO) 10.5 % (2-12); NEUTROPHILS # (AUTO) 4.6 X10'3 (1.8-7.7); NEUTROPHILS % (AUTO) 53.4 % (42-75); PLATELET COUNT 409 X10'3 (140-440); RED CELL DISTRIBUTION WIDTH 13.2 % (11.5-14.5); WHITE BLOOD COUNT 8.6 X10'3 (4.5-11.0)
[2020-05-04 13:48] LABS: ALANINE AMINOTRANSFERASE 46 U/L (12-78); ALBUMIN 4.1 G/DL (3.4-5.0); ALBUMIN/GLOBULIN RATIO 1.1 (1.1-1.5); ALKALINE PHOSPHATASE 107 IU/L (46-116); ANION GAP 9 (8-16); ASPARTATE AMINO TRANSFERASE 28 U/L (10-37); BILIRUBIN,TOTAL 0.3 MG/DL (0.1-1.0); BLOOD UREA NITROGEN 17 MG/DL (7-18); BUN/CREATININE RATIO 16.2 (5.4-32.0); CALCIUM 8.7 MG/DL (8.5-10.1); CHLORIDE 106 MMOL/L (99-107); CREATININE 1.05 MG/DL (0.60-1.10); GLUCOSE 90 MG/DL (70-104); POTASSIUM 4.4 MMOL/L (3.5-5.1); SODIUM 141 MMOL/L (135-145); TOTAL CARBON DIOXIDE 25.6 MMOL/L (24-32); eGFR 87 ML/MIN
[2020-05-04] MEDS ORDERED: POLY17PO10 PO (13:51)
[2020-05-04] MEDS ORDERED: DOCU100C40 PO (13:51)
[2020-05-04 14:32] LABS: PARTIAL THROMBOPLASTIN TIME 32 SECONDS (22-32)
[2020-05-04 16:52] LABS: OCCULT BLOOD STOOL NEGATIVE (Neg)
== END 2020-05-04 14:07 | disposition home or self-care (01) ==
LOC: ER 12:10
DX: K62.89 Other specified diseases of anus and rectum (principal); K59.00 Constipation, unspecified; F32.9 Major depressive disorder, single episode, unspecified; Z56.0 Unemployment, unspecified; Z79.899 Other long term (current) drug therapy
CPT/HCPCS: 36415; 80053; 82272; 85025; 85610; 85730; 99283

== ENCOUNTER 2022-04-09 16:49 | Emergency (ER) | payer MEDICAID ==
[~2022-04-09] VITALS: Ht 182.9 cm; Wt 136.6 kg
[~2022-04-09 16:49] MED LIST changes: +DOCU100C40 PO; +LURA40TA2 PO; -LURA40TA3 PO
[2022-04-09 18:10] LABS: BASOPHILS # (AUTO) 0.1 X10'3 (0-0.2); BASOPHILS % (AUTO) 0.9 % (0-1); EOSINOPHILS # (AUTO) 0.1 X10'3 (0-0.9); EOSINOPHILS % (AUTO) 1.7 % (0-6); HEMATOCRIT 44.1 % (42.0-52.0); HEMOGLOBIN 14.9 g/dl (14.0-17.9); LYMPHOCYTES # (AUTO) 2.6 X10'3 (1.1-4.8); LYMPHOCYTES % (AUTO) 28.9 % (21-51); MEAN CORPUSCULAR HEMOGLOBIN 30.1 PG (27.0-31.0); MEAN CORPUSCULAR HGB CONC 33.8 g/dL (33.0-36.5); MEAN CORPUSCULAR VOLUME 89.2 FL (78-98); MEAN PLATELET VOLUME 6.6 FL (7.4-10.4); MONOCYTES # (AUTO) 0.9 X10'3 (0-0.9); MONOCYTES % (AUTO) 10.8 % (2-12); NEUTROPHILS # (AUTO) 5.1 X10'3 (1.8-7.7); NEUTROPHILS % (AUTO) 57.7 % (42-75); PLATELET COUNT 384 X10'3 (140-440); RED BLOOD COUNT 4.94 X10'6 (4.70-6.10); RED CELL DISTRIBUTION WIDTH 13.6 % (11.5-14.5); WHITE BLOOD COUNT 8.8 X10'3 (4.5-11.0)
[2022-04-09 18:52] LABS: ALANINE AMINOTRANSFERASE 66 U/L (12-78); ALBUMIN 4.1 G/DL (3.4-5.0); ALBUMIN/GLOBULIN RATIO 1.2 (1.1-1.5); ALKALINE PHOSPHATASE 81 IU/L (46-116); ANION GAP 11 (8-16); ASPARTATE AMINO TRANSFERASE 30 U/L (10-37); BILIRUBIN,TOTAL 0.5 MG/DL (0.1-1.0); BLOOD UREA NITROGEN 11 MG/DL (7-18); BUN/CREATININE RATIO 13.1 (5.4-32.0); CHLORIDE 107 MMOL/L (99-107); CREATININE 0.84 MG/DL (0.60-1.10); GLUCOSE 114 MG/DL (70-104); POTASSIUM 4.2 MMOL/L (3.5-5.1); SODIUM 140 MMOL/L (135-145); TOTAL CARBON DIOXIDE 22.2 MMOL/L (24-32); TOTAL PROTEIN 7.6 G/DL (6.4-8.2); eGFR > 90 ML/MIN
[2022-04-09 20:08] VITALS: BP 134/88
== END 2022-04-09 20:11 | disposition home or self-care (01) ==
LOC: ER 16:49
DX: E86.0 Dehydration (principal); R55 Syncope and collapse; R42 Dizziness and giddiness; F32.A Depression, unspecified; Z72.89 Other problems related to lifestyle; Z56.0 Unemployment, unspecified; Z79.899 Other long term (current) drug therapy
CPT/HCPCS: 36415; 70450; 71045; 80053; 83880; 84484; 85025; 93005; 99285

== ENCOUNTER 2022-04-17 13:14 | Emergency (ER) | payer MEDICAID ==
[~2022-04-17] VITALS: Ht 182.9 cm; Wt 136.4 kg
[2022-04-17 13:31] VITALS: BP 147/70
[2022-04-17] MEDS ORDERED: CEPH500C2 PO (17:59)
[2022-04-17] MEDS ORDERED: bacitracin 15gm ointment TP ONE (18:00)
[2022-04-17] MEDS ORDERED: TETanus/Pertussis (Acell)/Diphther VAC/PF (Tdap-Adult) 0.5ml syringe IMVAC ONE (18:00)
== END 2022-04-17 18:34 | disposition home or self-care (01) ==
LOC: ER 13:15
DX: S81.811A Laceration without foreign body, right lower leg, initial encounter (principal); F32.A Depression, unspecified; Z79.2 Long term (current) use of antibiotics; X78.8XXA Intentional self-harm by other sharp object, initial encounter; Y93.89 Activity, other specified; Y92.89 Other specified places as the place of occurrence of the external cause; Y99.8 Other external cause status
CPT/HCPCS: 90471; 90715; 99283; A6258; A6446

== ENCOUNTER 2023-03-26 09:16 | Emergency (ER) | payer MEDICARE, MEDICAID ==
[~2023-03-26] VITALS: Ht 182.9 cm; Wt 126.2 kg
[2023-03-26 09:26] VITALS: BP 156/87
[2023-03-26] MEDS ORDERED: ondansetron 4mg rapidly disintigrating tab PO STA (10:00)
[2023-03-26] MEDS ORDERED: dicyclomine 10 MG capsule PO ONE (10:00)
[2023-03-26] MEDS ORDERED: famotidine 20mg tablet PO ONE (10:00)
[2023-03-26 10:26] LABS: BASOPHILS % (AUTO) 0.2 % (0-1); EOSINOPHILS # (AUTO) 0.1 X10'3 (0-0.9); EOSINOPHILS % (AUTO) 1.5 % (0-6); HEMOGLOBIN 15.6 g/dl (14.0-17.9); LYMPHOCYTES % (AUTO) 21.7 % (21-51); MEAN CORPUSCULAR HEMOGLOBIN 30.1 PG (27.0-31.0); MEAN CORPUSCULAR HGB CONC 33.1 g/dL (33.0-36.5); MEAN CORPUSCULAR VOLUME 90.8 FL (78-98); MEAN PLATELET VOLUME 6.9 FL (7.4-10.4); MONOCYTES % (AUTO) 11.2 % (2-12); NEUTROPHILS # (AUTO) 5.9 X10'3 (1.8-7.7); NEUTROPHILS % (AUTO) 65.4 % (42-75); PLATELET COUNT 399 X10'3 (140-440); RED BLOOD COUNT 5.17 X10'6 (4.70-6.10); RED CELL DISTRIBUTION WIDTH 13.5 % (11.5-14.5); WHITE BLOOD COUNT 9.1 X10'3 (4.5-11.0)
[2023-03-26 10:28] LABS: ALANINE AMINOTRANSFERASE 39 U/L (12-78); ALBUMIN/GLOBULIN RATIO 1.1 (1.1-1.5); ALKALINE PHOSPHATASE 92 IU/L (46-116); ANION GAP 10 (8-16); ASPARTATE AMINO TRANSFERASE 20 U/L (10-37); BILIRUBIN,TOTAL 0.3 MG/DL (0.1-1.0); BLOOD UREA NITROGEN 11 MG/DL (7-18); BUN/CREATININE RATIO 13.8 (10.0-20.0); CALCIUM 8.7 MG/DL (8.5-10.1); CHLORIDE 106 MMOL/L (99-107); GLUCOSE 112 MG/DL (70-104); LIPASE < 50 U/L (73-393); POTASSIUM 3.9 MMOL/L (3.5-5.1); SODIUM 140 MMOL/L (135-145); TOTAL PROTEIN 7.6 G/DL (6.4-8.2); eGFR > 90 ML/MIN
[2023-03-26 10:29] LABS: COLOR,URINE YELLOW (Yellow); GLUCOSE, URINE NEGATIVE (Neg); KETONES,URINE NEGATIVE (Neg); LEUKOCYTE ESTERASE ,URINE NEGATIVE (Neg); NITRITES, URINE NEGATIVE (Neg); OCCULT BLOOD,URINE TRACE-INTACT (Neg); PH,URINE 5.5 (4.8-8.0); PROTEIN,URINE NEGATIVE (Neg); UROBILINOGEN,URINE 0.2 E.U/dL (0.2-1.0)
[2023-03-26 10:31] LABS: CLARITY,URINE SLIGHTLY CLOUDY (Clear); UA COLLECTION TYPE CLN CATCH MIDSTREAM
[2023-03-26 10:45] LABS: MUCUS STRANDS MODERATE /LPF (Neg); SQUAMOUS EPITHELIAL CELL,UR FEW /LPF (FEW)
[2023-03-26 10:47] LABS: BACTERIA,URINE FEW /HPF (Neg); RBC,URINE 0-2 /HPF (0-2); WBC,URINE 0-4 /HPF (0-4)
[2023-03-26] MEDS ORDERED: ONDA4TAB12 PO (10:47)
[2023-03-26] MEDS ORDERED: FAMO20TA47 PO (10:47)
--- NOTE | 2023-03-26 11:01 | NUR ---
pt passed po challenage
== END 2023-03-26 11:22 | disposition home or self-care (01) ==
LOC: ER 09:17
DX: K52.89 Other specified noninfective gastroenteritis and colitis (principal); F32.A Depression, unspecified; Z56.0 Unemployment, unspecified; Z79.899 Other long term (current) drug therapy
CPT/HCPCS: 36415; 80053; 81001; 83690; 85025; 99284

== ENCOUNTER 2024-01-06 13:50 | Emergency (ER) | payer MEDICARE, MEDICAID ==
[~2024-01-06] VITALS: Ht 182.9 cm; Wt 126.2 kg
[~2024-01-06 13:50] MED LIST changes: +FAMO20TA47 PO; +ONDA4TAB12 PO
[2024-01-06 14:22] LABS: BILIRUBIN,URINE NEGATIVE (Neg); CLARITY,URINE CLEAR (Clear); COLOR,URINE YELLOW (Yellow); GLUCOSE, URINE NEGATIVE (Neg); KETONES,URINE 15 mg/dl (Neg); LEUKOCYTE ESTERASE ,URINE NEGATIVE (Neg); NITRITES, URINE NEGATIVE (Neg); OCCULT BLOOD,URINE TRACE-INTACT (Neg); PROTEIN,URINE NEGATIVE (Neg)
[2024-01-06 14:28] LABS: UA COLLECTION TYPE CLN CATCH MIDSTREAM
[2024-01-06 14:30] LABS: BACTERIA,URINE NONE SEEN /HPF (Neg); MUCUS STRANDS NONE SEEN /LPF (Neg); RBC,URINE 0-2 /HPF (0-2); SQUAMOUS EPITHELIAL CELL,UR NONE SEEN /LPF (FEW); WBC,URINE NONE SEEN /HPF (0-4)
[2024-01-06 14:31] LABS: URINE AMPHETAMINE SCREEN NEGATIVE (Neg); URINE BARBITUATE SCREEN NEGATIVE (Neg); URINE BENZODIAZEPINES SCREEN NEGATIVE (Neg); URINE CANNABINOID SCREEN NEGATIVE (Neg); URINE COCAINE SCREEN NEGATIVE (Neg); URINE METHADONE SCREEN NEGATIVE (Neg); URINE OPIATE SCREEN NEGATIVE (Neg); URINE PHENCYCLIDINE SCREEN NEGATIVE (Neg)
[2024-01-06 16:09] LABS: BASOPHILS % (AUTO) 0.4 % (0-1); EOSINOPHILS # (AUTO) 0.1 X10'3 (0-0.9); EOSINOPHILS % (AUTO) 0.6 % (0-6); HEMATOCRIT 46.6 % (42.0-52.0); HEMOGLOBIN 15.8 g/dl (14.0-17.9); LYMPHOCYTES % (AUTO) 19.4 % (21-51); MEAN CORPUSCULAR HEMOGLOBIN 30.5 PG (27.0-31.0); MEAN CORPUSCULAR HGB CONC 33.9 g/dL (33.0-36.5); MEAN CORPUSCULAR VOLUME 89.9 FL (78-98); MEAN PLATELET VOLUME 7.1 FL (7.4-10.4); MONOCYTES # (AUTO) 0.7 X10'3 (0-0.9); MONOCYTES % (AUTO) 6.9 % (2-12); NEUTROPHILS # (AUTO) 7.6 X10'3 (1.8-7.7); NEUTROPHILS % (AUTO) 72.7 % (42-75); PLATELET COUNT 375 X10'3 (140-440); RED BLOOD COUNT 5.19 X10'6 (4.70-6.10); WHITE BLOOD COUNT 10.4 X10'3 (4.5-11.0)
[2024-01-06 16:28] LABS: ALBUMIN 4.1 G/DL (3.4-5.0); ANION GAP 12 (8-16); BLOOD UREA NITROGEN 12 MG/DL (7-18); BUN/CREATININE RATIO 15.8 (10.0-20.0); CALCIUM 8.5 MG/DL (8.5-10.1); CHLORIDE 105 MMOL/L (99-107); CREATININE 0.76 MG/DL (0.60-1.10); ETHANOL < 10 MG/DL (<10); GLUCOSE 91 MG/DL (70-104); SODIUM 140 MMOL/L (135-145); THYROID STIMULATING HORMONE 0.55 ulU/ml (0.34-4.50); TOTAL CARBON DIOXIDE 23.2 MMOL/L (24-32); eCRCL 159 ML/MIN; eGFR > 90 ML/MIN
[2024-01-06] MEDS: traZODone 50mg tablet PO ONE (20:20)
[2024-01-07 10:21] VITALS: BP 119/62; PULSE 61; RESP 18; TEMP 98.1; O2SAT 98
== END 2024-01-07 10:16 | disposition home or self-care (01) ==
LOC: ER 13:51
DX: R45.851 Suicidal ideations (principal); Z20.822 Contact with and (suspected) exposure to COVID-19; Z79.899 Other long term (current) drug therapy
CPT/HCPCS: 36415; 80048; 80305; 80320; 81001; 84443; 85025; 87811; 99285